=== PATIENT | female | born 2000 | race Caucasian/White ===

== ENCOUNTER 2022-04-12 16:45 | Inpatient (IN) | payer OTHER ==
[~2022-04-12] VITALS: Ht 165.1 cm; Wt 73.9 kg
--- NOTE | 2022-04-12 17:07 | NUR ---
TO ER BED 9 AWAITING MD BRUNSON
--- NOTE | 2022-04-12 17:49 | NUR ---
IV LINE IS ESTABLISHED, BLOOD SPECIMEN COLLECTED AND SENT TO THE LAB. THE LINE IS SALINE LOCKED.
[2022-04-12] MEDS ORDERED: VANCOMYCIN 1 GM in IV D5W 250 ML IV ONE (18:00)
[2022-04-12 18:01] LABS: BASOPHILS % (AUTO) 0.1 % (0.0-2.0); EOSINOPHILS % (AUTO) 0.4 % (0.0-6.0); HEMATOCRIT 38 % (33-45); HEMOGLOBIN 12.7 g/dL (11.5-14.8); LYMPHOCYTES # (AUTO) 0.4 K/uL (0.8-4.8); LYMPHOCYTES % (AUTO) 2.4 % (20.0-44.0); MEAN CORPUSCULAR HGB CONC 34 g/dl (31.0-36.0); MEAN CORPUSCULAR VOLUME 87 fL (82-100); MONOCYTES # (AUTO) 1.2 K/uL (0.1-1.30); MONOCYTES % (AUTO) 6.6 % (2.0-12.0); NEUTROPHILS # (AUTO) 16.9 K/uL (1.8-8.9); NEUTROPHILS % (AUTO) 90.5 % (43.0-81.0); PLATELET COUNT (AUTO) 240 K/uL (150-450); RED BLOOD CELL COUNT(AUTO) 4.35 MIL/uL (4.0-5.2); WHITE BLOOD COUNT (AUTO) 18.6 K/uL (4.3-11.0)
[2022-04-12 18:20] LABS: CALCIUM, SERUM 8.6 mg/dL (8.5-10.1); CREATININE 1.1 mg/dL (0.6-1.3); POTASSIUM 2.9 mmol/L (3.5-5.1)
[2022-04-12 18:38] LABS: BAND % (MANUAL) 3 % (0.0-5.0); LYMPHOCYTES % (MANUAL) 3 % (16-48); MONOCYTES % (MANUAL) 4 % (0-11.0); NEUTROPHILS % (MANUAL) 90 (42-76)
--- NOTE | 2022-04-12 18:51 | NUR ---
COVID ANTIGEN SWAB DONE AND SENT TO THE LAB
--- NOTE | 2022-04-12 19:29 | NUR ---
report given to nurse Rivas for alejandra
[2022-04-12] MEDS ORDERED: POTASSIUM CHLORIDE 20 MEQ TAB.PRT.SR PO ONE ×2 (20:00→20:05)
[2022-04-12] MEDS ORDERED: Magnesium 1GM/D5W 100ML PREMIX PIGGYBACK IV ONE (20:00)
[2022-04-12] MEDS ORDERED: Magnesium 1GM/D5W 100ML PREMIX 100 ML IV ONE (20:05)
[2022-04-12] MEDS ORDERED: Z GUARD REMEDY 4 OZ OINT TP PRN (20:30)
[2022-04-12] MEDS ORDERED: MAG HYDROX/AL HYDROX/SIMETH 30 ML UDC PO PRN (20:30)
[2022-04-12] MEDS ORDERED: ZOLPIDEM TARTRATE 5 MG TABLET PO PRN (20:30)
[2022-04-12] MEDS ORDERED: MAGNESIUM HYDROXIDE 30 ML UDC PO PRN (20:30)
[2022-04-12] MEDS ORDERED: HYDROCODONE/APAP 10/325MG TABLET PO PRN (20:30)
--- NOTE | 2022-04-12 21:44 | NUR ---
REPORT GIVEN TO CHUCK
[2022-04-12 22:30] VITALS: BP 108/53
--- NOTE | 2022-04-12 22:30 | NUR ---
PT TRANSPORTED TO ROOM 315 VIA [facility] IN STABLE CONDITION
[2022-04-12 23:00] VITALS: BP 108/53
--- NOTE | 2022-04-12 23:02 | NUR ---
MS ADMISSION NOTES: RECEIVED PATIENT FROM ER [facility]IA [facility] AT 2225, NO COMPLAIN OF PAIN AND DISCOMFORT AT THIS TIME PATIENT IS A/OX4 AMBULATORY WITH SUPERVISION, ON ROOOM AIR SATURATING WELL, SKIN ASSESSMENT SDONE AND DOCUMENTED, INVENTORY DONE AND DOCUMENTED, V/S ARE WITHIN NORMAL RANGE, PATIENT WAS ORIENTED JEANE PLACE REMIND TO USE CALL LIGHTS WHEN NEEDED ASSISTANCE PATIENT KEPT CLEAN AND DRY PLACED COMFOERTABLY IN BED, ALL NEEDS MET, WILL CONTINUE TO MONITOR
[2022-04-13] MEDS ORDERED: PIPERACILLIN /TAZOBACTAM 3.375 G VIAL IV ONE ×2 (00:20→05:52)
[2022-04-13] MEDS: PIPERACILLIN /TAZOBACTAM 3.375 G in IV D5W 50 ML IV SCH ×4 (00:36→16:49)
[2022-04-13] MEDS: IV NS 0.9% 1,000 ML IV PRN ×2 (00:40→16:37)
[2022-04-13] MEDS ORDERED: VANCOMYCIN 1 GM VIAL ONE (05:53)
[2022-04-13] MEDS ORDERED: VANCOMYCIN 1 GM in IV D5W 250 ML IV ONE (07:00)
[2022-04-13 07:30] LABS: BASOPHILS % (AUTO) 0.1 % (0.0-2.0); EOSINOPHILS % (AUTO) 3.9 % (0.0-6.0); HEMATOCRIT 40 % (33-45); LYMPHOCYTES # (AUTO) 0.4 K/uL (0.8-4.8); LYMPHOCYTES % (AUTO) 2.2 % (20.0-44.0); MEAN CORPUSCULAR HGB CONC 33 g/dl (31.0-36.0); MEAN CORPUSCULAR VOLUME 89 fL (82-100); MONOCYTES # (AUTO) 0.8 K/uL (0.1-1.30); MONOCYTES % (AUTO) 4.8 % (2.0-12.0); NEUTROPHILS # (AUTO) 14.2 K/uL (1.8-8.9); PLATELET COUNT (AUTO) 234 K/uL (150-450); RED BLOOD CELL COUNT(AUTO) 4.45 MIL/uL (4.0-5.2); WHITE BLOOD COUNT (AUTO) 15.9 K/uL (4.3-11.0)
--- NOTE | 2022-04-13 07:31 | NUR ---
MS RN CLOSING NOTES: PATIENT SLEEP IN BED COMFORTABLY, BED IN LOW POSITION CALL LIGHTS WITHIN REACH, ON ROOM AIR SATURATING WELL, PATIENT KEPT CLEAN AND DRY ALL NEEDS MET ENDORSE TO INCOMING SHIFT.
--- NOTE | 2022-04-13 07:40 | NUR ---
MS RN OPENING NOTES: RECEIVED PATIENT ASLEEP IN BED COMFORTABLY, ON ROOM AIR, SATURATING WELL, IVF ON RFA G#20 INFUSING 75ML/HR. RT LOWER LEG ELEVATED. SAFETY MEASURES IN PLACE. SIDE RAILS UP X2, BED LOCKED IN LOWEST POSITION, CALL LIGHT WITHIN REACH. WILL CONTINUE TO MONITOR.
[2022-04-13 08:00] VITALS: BP 100/67
[2022-04-13 08:44] LABS: CALCIUM, SERUM 8.7 mg/dL (8.5-10.1); CREATININE 0.8 mg/dL (0.6-1.3); MAGNESIUM 2.2 mg/dL (1.8-2.4); POTASSIUM 3.3 mmol/L (3.5-5.1)
[2022-04-13] MEDS ORDERED: POTASSIUM CHLORIDE 20 MEQ TAB.PRT.SR PO SCH (10:00)
[2022-04-13 16:00] VITALS: BP 118/66
[2022-04-13] MEDS ORDERED: K PHOS NEUTRAL 250 MG TABLET PO ONE (16:00)
[2022-04-13] MEDS: ACETAMINOPHEN 325 MG TABLET PO PRN (16:41)
[2022-04-13] MEDS: VANCOMYCIN 1 GM in IV D5W 250 ML IV SCH (16:50)
--- NOTE | 2022-04-13 18:19 | NUR ---
MS RN CLOSING NOTES: PATIENT AWAKE, RESTING COMFORTABLY IN BED, ON ROOM AIR, SATURATING WELL, IVF ON RFA G#20 INFUSING 75ML/HR. RT LOWER LEG ELEVATED. SAFETY MEASURES IN PLACE. SIDE RAILS UP X2, BED LOCKED IN LOWEST POSITION, CALL LIGHT WITHIN REACH. WILL ENDORSE TO NEXT NURSE ON DUTY FOR CONTINUITY OF CARE.
--- NOTE | 2022-04-13 19:30 | NUR ---
MS RN OPENING NOTE RECEIVED PATIENT IN BED, A/OX4. BOYFRIEND AT BEDSIDE. NO S/S OF APPARENT DISTRESS IN ROOM AIR. COMPLAINING THAT HER IV LINE HURTS, ATTENDED TO PATIENT NEEDS/CONCERN AT THIS TIME. PATIENT C/O NAUSEA AND EMESIS X1-- GIVEN ZOFRAN. ABLE TO MAKE NEEDS KNOWN. SAFETY IN PLACE. WILL CONTINUE WITH PATIENT'S CARE PLAN.
[2022-04-13] MEDS: ONDANSETRON HCL/PF 4 MG/2 ML VIAL IVP PRN (20:13)
[2022-04-14] MEDS: PIPERACILLIN /TAZOBACTAM 3.375 G in IV D5W 50 ML IV SCH ×3 (00:27→11:46)
[2022-04-14] MEDS: VANCOMYCIN 1 GM in IV D5W 250 ML IV SCH (05:50)
[2022-04-14 06:56] LABS: CALCIUM, SERUM 8.8 mg/dL (8.5-10.1); PHOSPHORUS 3.3 mg/dL (2.5-4.9); POTASSIUM 3.3 mmol/L (3.5-5.1)
[2022-04-14 06:59] LABS: BASOPHILS % (AUTO) 0.1 % (0.0-2.0); EOSINOPHILS % (AUTO) 2.2 % (0.0-6.0); HEMATOCRIT 35 % (33-45); HEMOGLOBIN 11.7 g/dL (11.5-14.8); LYMPHOCYTES % (AUTO) 5.5 % (20.0-44.0); MEAN CORPUSCULAR HGB CONC 33 g/dl (31.0-36.0); MEAN CORPUSCULAR VOLUME 88 fL (82-100); MONOCYTES # (AUTO) 1.5 K/uL (0.1-1.30); MONOCYTES % (AUTO) 7.8 % (2.0-12.0); NEUTROPHILS # (AUTO) 15.8 K/uL (1.8-8.9); NEUTROPHILS % (AUTO) 84.4 % (43.0-81.0); PLATELET COUNT (AUTO) 262 K/uL (150-450); RED BLOOD CELL COUNT(AUTO) 4.01 MIL/uL (4.0-5.2); WHITE BLOOD COUNT (AUTO) 18.8 K/uL (4.3-11.0)
--- NOTE | 2022-04-14 07:17 | NUR ---
ms rn note NEEDS ATTENDED. REPORT GIVEN TO YANDY FOR CONTINUITY OF CARE.
[2022-04-14] MEDS: ACETAMINOPHEN 325 MG TABLET PO PRN ×2 (07:45→17:43)
--- NOTE | 2022-04-14 08:09 | NUR ---
WOUND CARE CONSULT: PT PRESENTS WITH REDNESS AND SWELLING TO RT ANKLE AND FOOT, PRESENT ON ADMISSION. DR FAJARDO NOTIFIED OF DPM CONSULT REQUEST. PT IS INDEPENDENT WITH BED MOBILITY. Addendum: 04/14/22 at 0839 by BO VITALE WNDNU CORRECTION: DR KWON NOTIFIED OF SURGICAL CONSULT REQUEST.
[2022-04-14 08:26] VITALS: BP 110/64
[2022-04-14] MEDS ORDERED: POTASSIUM CL. PREMIX PERIPHER. 50 ML IV SCH (10:00)
[2022-04-14] MEDS ORDERED: IV NS 0.45% 500 ML IV ONE (10:30)
[2022-04-14] MEDS ORDERED: IV 1/2NS 1000 ML 1,000 ML IV SCH (12:00)
[2022-04-14] MEDS: CEFTRIAXONE 1 G in IV D5W 50 ML IV SCH (14:47)
--- NOTE | 2022-04-14 16:56 | NUR ---
RN OPENING NOTE PATIENT AWAKE IN BED RESTING, A/O X 4. NO S/S OF PAIN NOTED AT THIS TIME. ON ROOM AIR, NO DISTRESS OR SHORTNESS OF BREATH NOTED. IV ACCESS RFA #22G, INTACT, PATENT AND FLUSHING WELL. FALL AND SAFETY MEASURES IN PLACE, BED IN LOW AND LOCK POSITION, CALL LIGHT AND TABLE WITHIN EASY REACH, SIDE RAILS UP X2. WILL CONTINUE TO MONITOR.
[2022-04-14] MEDS: CLOTRIMAZOLE/BETAMETASONE DIPROPIONATE 15 GM TUBE TP SCH (17:17)
[2022-04-14] MEDS ORDERED: VANCOMYCIN IV SCH (18:00)
[2022-04-14] MEDS ORDERED: D5W IV SCH (18:00)
--- NOTE | 2022-04-14 19:19 | NUR ---
RN NOTE PATIENT WAS NOT ABLE TO TOLERATE IV POTASSIUM, DOCTOR GSIEL MIKE ORDER TO CHANGE SAME DOSE PO INSTEAD. ORDER WAS PLACED. ENDORSE TO NEXT SHIFT NURSE.
--- NOTE | 2022-04-14 19:28 | NUR ---
RN CLOSING NOTE PATIENT AWAKE IN BED RESTING, A/O X 4. NO S/S OF PAIN NOTED AT THIS TIME. ON ROOM AIR, NO DISTRESS OR SHORTNESS OF BREATH NOTED. IV ACCESS CHRIS #22G, INTACT, PATENT AND FLUSHING WELL. FALL AND SAFETY MEASURES IN PLACE, BED IN LOW AND LOCK POSITION, CALL LIGHT AND TABLE WITHIN EASY REACH, SIDE RAILS UP X2. WILL ENDORSE TO ORGANIC SEARCH LEAD.
[2022-04-14] MEDS ORDERED: POTASSIUM CHLORIDE 10 MEQ TABLET.SA PO ONE (19:30)
--- NOTE | 2022-04-14 19:37 | NUR ---
RN OPENING NOTE PATIENT RECEIVED IN BED AAOX4 ON RM AIR JOSELYN WELL NO SIGN SOB/DISTRESS NOTED.IV ACCESS RFA #22G, INTACT, PATENT AND FLUSHING WELL. FALL AND SAFETY MEASURES IN PLACE, BED IN LOW AND LOCK POSITION, CALL LIGHT AND TABLE WITHIN EASY REACH, SIDE RAILS UP X2. WILL CONTINUE TO MONITOR.
[2022-04-14 20:00] VITALS: BP 106/58
[2022-04-14] MEDS: LINEZOLID 600 MG TABLET PO SCH (21:11)
[2022-04-15 06:58] LABS: MAGNESIUM 2.2 mg/dL (1.8-2.4); PHOSPHORUS 4.1 mg/dL (2.5-4.9)
[2022-04-15 07:01] LABS: BASOPHILS % (AUTO) 0.2 % (0.0-2.0); HEMATOCRIT 35 % (33-45); HEMOGLOBIN 11.3 g/dL (11.5-14.8); LYMPHOCYTES # (AUTO) 1.5 K/uL (0.8-4.8); LYMPHOCYTES % (AUTO) 9.5 % (20.0-44.0); MEAN CORPUSCULAR HGB CONC 33 g/dl (31.0-36.0); MEAN CORPUSCULAR VOLUME 89 fL (82-100); MONOCYTES # (AUTO) 1.2 K/uL (0.1-1.30); MONOCYTES % (AUTO) 8.1 % (2.0-12.0); NEUTROPHILS # (AUTO) 12.2 K/uL (1.8-8.9); NEUTROPHILS % (AUTO) 79.2 % (43.0-81.0); PLATELET COUNT (AUTO) 253 K/uL (150-450); RED BLOOD CELL COUNT(AUTO) 3.89 MIL/uL (4.0-5.2); WHITE BLOOD COUNT (AUTO) 15.4 K/uL (4.3-11.0)
--- NOTE | 2022-04-15 07:02 | NUR ---
RN CLOSING NOTE PATIENT IN BED AAOX4 ON RM AIR JOSELYN WELL NO SIGN SOB/DISTRESS NOTED.IV ACCESS RFA #22G, INTACT, PATENT AND FLUSHING WELL. FALL AND SAFETY MEASURES IN PLACE, BED IN LOW AND LOCK POSITION, CALL LIGHT AND TABLE WITHIN EASY REACH, SIDE RAILS UP X2. WILL ENDORSED TO NEXT SHIFT.
--- NOTE | 2022-04-15 07:30 | NUR ---
MS RN NOTES PATIENT IN BED, ALERT ORIENTED X 4, NO ACUTE DISTRESS NOTED.BREATHING UNLABORED.IV ACCESS PATENT AND INTACT, NO REDNESS, NO BLEEDING , NO REDNESS NOTED. SAFETY MEASURES IN PLACE, CALL LIGHT WITHIN REACH. WILL CONTINUE TO MONITOR ACCORDINGLY.
[2022-04-15 08:00] VITALS: BP 129/60
[2022-04-15] MEDS: LINEZOLID 600 MG TABLET PO SCH ×2 (08:40→21:06)
[2022-04-15] MEDS: IV NS 0.9% 1,000 ML IV PRN (08:41)
[2022-04-15] MEDS: CLOTRIMAZOLE/BETAMETASONE DIPROPIONATE 15 GM TUBE TP SCH ×2 (09:13→17:52)
[2022-04-15 14:31] LABS: CALCIUM, SERUM 8.6 mg/dL (8.5-10.1); CREATININE 1.5 mg/dL (0.6-1.3); POTASSIUM 3.7 mmol/L (3.5-5.1)
[2022-04-15] MEDS: CEFTRIAXONE 1 G in IV D5W 50 ML IV SCH (15:58)
[2022-04-15 16:18] VITALS: BP 116/68
[2022-04-15] MEDS: ACETAMINOPHEN 325 MG TABLET PO PRN (17:50)
--- NOTE | 2022-04-15 19:00 | NUR ---
MS RN NOTES PATIENT IN BED, ALERT ORIENTED X 4, NO ACUTE DISTRESS NOTED.BREATHING UNLABORED.IV ACCESS PATENT AND INTACT, NO REDNESS, NO BLEEDING , NO REDNESS NOTED. SAFETY MEASURES IN PLACE, CALL LIGHT WITHIN REACH. NEEDS ATTENDED AND ANTICIPATED.WILL ENDORSE TO NIGHT NURSE FOR CONTINUITY OF CARE
--- NOTE | 2022-04-15 19:25 | NUR ---
MS RN OPENING NOTES RECEIVED PATIENT IN BED; AWAKE, ALERT AND ORIENTED X4. BREATHING IS EVEN AND NONLABORED. ON ROOM AIR; WELL TOLERATED. NOT IN ANY FORM OF RESPIRATORY DISTRESS. DENIES ANY PAIN OR DISCOMFORT OF THIS TIME. WITH IV ACCESS ON RIGHT UPPER ARM G#22; PATENT, INTACT AND FLUSHES WELL. ABLE TO MAKE NEEDS KNOWN. SAFETY MEASURES IMPLEMENTED: CALL LIGHT AND TABLE WITHIN EASY REACH, SIDE RAILS UP X2, BED IN LOWEST LOCKED POSITION. WILL CONTINUE TO MONITOR
[2022-04-15 20:00] VITALS: BP 101/64
[2022-04-16] MEDS: ONDANSETRON HCL/PF 4 MG/2 ML VIAL IVP PRN (05:45)
--- NOTE | 2022-04-16 07:02 | NUR ---
MS RN CLOSING NOTES PATIENT IS IN BED AWAKE, ALERT AND ORIENTED X4. ON ROOM AIR; TOLERATING WELL. NO SOB NOTED. WITH IV ACCESS @ RFA #22G, INTACT, PATENT AND FLUSHES WELL. FALL AND SAFETY MEASURES IN PLACE. ENDORSED TO MORNING SHIFT FOR BACILIO.
--- NOTE | 2022-04-16 07:45 | NUR ---
MS RN OPENING NOTES RECEIVED ON BED AWAKE , A/O X 4 ,VERBALLY RESPONSIVE AND ABLE TO MAKE NEEDS KNOWN, NO C/O OF PAIN AND DISCOMFORT AT THIS TIME , NO SOB OR DISTRESS NOTED , CHRIS Hilliard#22 WITH NS @75 ML /HOUR , NO C/O OF NAUSEA AND VOMITTING ,CONTINENT WITH BRP , ROOM AIR , BED IN THE LOWEST POSITION , REGULAR DIET AND BREAKFAST WAS SERVED ,WILL CONTINUE TO MONITOR FOR ANY CHANGES
[2022-04-16] MEDS: LINEZOLID 600 MG TABLET PO SCH ×2 (09:16→21:01)
[2022-04-16] MEDS: CLOTRIMAZOLE/BETAMETASONE DIPROPIONATE 15 GM TUBE TP SCH ×2 (09:17→17:00)
[2022-04-16] MEDS: CEFTRIAXONE 1 G in IV D5W 50 ML IV SCH (14:18)
--- NOTE | 2022-04-16 14:30 | NUR ---
RN NOTE Patient's IV site is leaking. Tried to reinforce IV, still leaking. IV access removed. Patient requested to reinsert IV later.
[2022-04-16 16:10] VITALS: BP 123/77
[2022-04-16] MEDS: ACETAMINOPHEN 325 MG TABLET PO PRN (16:14)
--- NOTE | 2022-04-16 17:26 | NUR ---
RN NOTE Patient states that she doesn't need the cream anymore, there is no more redness and itching in her vulva and groin area anymore.
--- NOTE | 2022-04-16 17:44 | NUR ---
RN NOTE Patient refusing IV re-insertion. On the phone crying and arguing with someone. Will try again later.
--- NOTE | 2022-04-16 18:45 | NUR ---
RN NOTE Patient still refusing IV reinsertion, states she wants to eat her dinner first. Will endorse to operations supervisor 2nd shift.
--- NOTE | 2022-04-16 18:52 | NUR ---
MS RN CLOSING NOTES PATIENT AWAKE A/O X 4 , VERBALLY RESPONSIVE , NOTED WITH RIGHT FOOT REDNESS AND WAS SEEN BY DR REECE AND SAID ITS IMPROVING , CONTINUE TO ELEVATE LEG , IV ATB GIVEN , C/O OF PAIN AND TYLENOL GIVEN , REFUSED LAB , IV SITE WAS LEAKING AND FOR REINSERTION , OFFERED 2X FRO REINSERTION AND STILL REFUSING , PATIENT SAID AFTER DINNER. FOR POSSIBLE D/C TOMORROW , WILL ENDORSED TO SENIOR DIRECTOR
--- NOTE | 2022-04-16 19:45 | NUR ---
MS RN NOTES RECEIVED LAYING ON BED,WITH BOYFRIEND AT BEDSIDE,NO IV ACCESS,MD AWARE.ON PO ANTIBIOTICS FOR TONIGHT.DENIES PAIN AY THE MOMENT,RIGHT FOOT REMAINS REDDISH AND SLIGHTLY SWOLLEN,ENCOURAGED TO ELEVATE ON PILLOWS.CALL LIGHT IN REACH,NEEDS ANTICIPATED.
[2022-04-16 20:00] VITALS: BP 109/57
--- NOTE | 2022-04-17 06:45 | NUR ---
MS RN NOTES NO SIGNIFICANT CHANGE IN STATUS.SLEPT WELL AT NIGHT.POSSIBLE DISCHARGE TODAY.IN NO ACUTE DISTRESS.
[2022-04-17 07:04] LABS: BASOPHILS # (AUTO) 0.1 K/uL (0.0-0.2); BASOPHILS % (AUTO) 0.6 % (0.0-2.0); EOSINOPHILS % (AUTO) 2.4 % (0.0-6.0); HEMATOCRIT 34 % (33-45); HEMOGLOBIN 11.1 g/dL (11.5-14.8); LYMPHOCYTES # (AUTO) 2.3 K/uL (0.8-4.8); MEAN CORPUSCULAR HGB CONC 33 g/dl (31.0-36.0); MEAN CORPUSCULAR VOLUME 88 fL (82-100); MONOCYTES # (AUTO) 1.2 K/uL (0.1-1.30); MONOCYTES % (AUTO) 12.3 % (2.0-12.0); NEUTROPHILS # (AUTO) 6.2 K/uL (1.8-8.9); NEUTROPHILS % (AUTO) 61.7 % (43.0-81.0); PLATELET COUNT (AUTO) 330 K/uL (150-450); RED BLOOD CELL COUNT(AUTO) 3.82 MIL/uL (4.0-5.2); WHITE BLOOD COUNT (AUTO) 10.1 K/uL (4.3-11.0)
[2022-04-17 07:28] LABS: CALCIUM, SERUM 8.9 mg/dL (8.5-10.1); CREATININE 1.3 mg/dL (0.6-1.3); POTASSIUM 3.6 mmol/L (3.5-5.1)
--- NOTE | 2022-04-17 07:40 | NUR ---
MS RN OPENING NOTES RECEIVED ON BED . AWAKE , A/O X4 , ABLE MAKE NEEDS KNOWN , NO SOB OR ANY DISTRESS , NO C/O OF PAIN AND DISCOMFORT , BED IN LOWEST POSITION , REDNESS ON THE RIGHT FOOT IMPROVED AND LESS SWELLING NOTED , FOR D/C PLANNING TODAY , WILL FOLLOW FOR ANY NEW ORDERS FOR DISCHARGE
[2022-04-17] MEDS ORDERED: DOXY-326 PO (07:49)
[2022-04-17] MEDS: CLOTRIMAZOLE/BETAMETASONE DIPROPIONATE 15 GM TUBE TP SCH (09:00)
[2022-04-17] MEDS: LINEZOLID 600 MG TABLET PO SCH (10:11)
--- NOTE | 2022-04-17 12:50 | NUR ---
DISCHARGE ORDER Received order for discharge. Patient is A/Ox 4 , able to make needs known. Stable on room air, breathing evenly and unlabored. No SOB or s/s of distress noted. Discharge instructions given both verbally and in written form. All belongings accounted for, belonging sheet signed. Patient denies any pain at this time. Patient left in stable condition via private car with boyfriend. Addendum: 04/17/22 at 1537 by OSBALDO CAR RN CORRECTION: DISCHARGE NOTE, NOT DISCHARGE ORDER
== END 2022-04-17 13:19 | disposition home or self-care (01) | DRG 602 ==
LOC: EDSEX 16:49 → ER 16:49 → MED 21:33
PROVIDERS: ADMIT Nurse Practitioner Acute Care; ATTEND Family Medicine
DX: L03.115 Cellulitis of right lower limb (principal); N17.0 Acute kidney failure with tubular necrosis; E87.1 Hypo-osmolality and hyponatremia; Z20.822 Contact with and (suspected) exposure to COVID-19; E87.6 Hypokalemia; F17.210 Nicotine dependence, cigarettes, uncomplicated; L02.415 Cutaneous abscess of right lower limb; E83.42 Hypomagnesemia; R73.9 Hyperglycemia, unspecified
CPT/HCPCS: 36415; 73610-TC; 73700-TC; 80048-TC; 80202-TC; 83605-TC; 83735-TC; 84100-TC; 84703-TC; 85025-TC; 87040-TC; 87070-TC; 87081-TC; 93971-TC; C9803; G0378; J0696; J2405; J2543; J3370; J3475; J3480; J3490; J7030; J7050; J7060